=== PATIENT | male | born 2000 | race Two or more races ===

== ENCOUNTER 2025-01-14 22:52 | Emergency (ER) | payer SELFPAY ==
[2025-01-14 22:53] VITALS: BMI 33.5
[2025-01-14 23:02] VITALS: BP 134/79; PULSE 99; RESP 18; TEMP 37.1; O2SAT 97
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
[2025-01-15 00:09] VITALS: RESP 18
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
== END 2025-01-15 00:09 | disposition home or self-care (01) ==
PROVIDERS: Emergency Provider Emergency Medicine
DX: S09.90XA Unspecified injury of head, initial encounter (principal); S19.9XXA Unspecified injury of neck, initial encounter; S20.219A Contusion of unspecified front wall of thorax, initial encounter; V89.2XXA Person injured in unspecified motor-vehicle accident, traffic, initial encounter
CPT/HCPCS: 70450; 71046; 72125; 99283